=== PATIENT | female | born 1935 | race Caucasian/White ===

== ENCOUNTER 2021-01-17 14:00 | Emergency (ER) | payer OTHER ==
[~2021-01-17] VITALS: Ht 172.7 cm; Wt 74.8 kg
[2021-01-17 15:28] LABS: URINE BLOOD TRACE (Negative); URINE CLARITY CLEAR; URINE COLOR YELLOW; URINE GLUCOSE-RANDOM* NEGATIVE (Negative); URINE KETONES 1+ (Negative); URINE LEUKOCYTES-REFLEX NEGATIVE (Negative); URINE NITRITE-REFLEX NEGATIVE (Negative); URINE PROTEIN (DIPSTICK) TRACE (Negative); URINE SPECIFIC GRAVITY >= 1.030 (1.005-1.035)
[2021-01-17 15:30] LABS: ICTOTEST (BILI CONFIRMATORY) Negative (Negative); URINE BILIRUBIN NEGATIVE (Negative)
[2021-01-17 16:12] LABS: ABSOLUTE NEUTROPHILS 1.8 thou/uL (1.4-8.2); BASOPHILS 0.8 % (0.0-2.0); EOSINOPHILS 5.7 % (0.0-3.0); HEMATOCRIT 38.4 % (37.0-47.0); HEMOGLOBIN 12.9 gm/dL (12.0-15.0); LYMPHOCYTES 28.1 % (24.0-44.0); MCH 28.6 pg (26.0-34.0); MCHC 33.6 g/dL (28.0-37.0); MCV 85.1 fL (80.0-100.0); MONOCYTES 18.1 % (1.0-8.0); PLATELET COUNT 174 thou/uL (150-400); POLYS 47.3 % (36.0-66.0); RBC 4.51 mil/uL (4.20-5.00); RDW 15.7 % (10.5-14.5); WBC 3.7 thou/uL (4.0-11.0)
[2021-01-17 16:21] LABS: CALCIUM 8.7 mg/dL (8.5-10.1); CREATININE 0.9 mg/dL (0.6-1.0); POTASSIUM 3.6 mmol/L (3.5-5.1)
[2021-01-17 16:27] LABS: ALBUMIN 3.2 g/dL (3.4-5.0); TOTAL BILIRUBIN 0.4 mg/dL (0.2-1.0); TOTAL PROTEIN 6.9 g/dL (6.4-8.2)
--- NOTE | 2021-01-17 16:53 | EKG ---
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: : 1935 Requested By: Viktor Downs Order Number: [id number] MD: Arpit Manning Measurements Intervals [place] Rate: 66 P: MS: 216 QRS: -37 QRSD: 109 T: 10 QT: 443 QTc: 465 Interpretive Statements Atrial-paced complexes First-degree AV block Left ventricular hypertrophy Nonspecific ST segment abnormalities No previous ECG available for comparison Electronically Signed On 01-17-2021 16:53:52 CDT by Arpit Manning [email or web address] <ELECTRONICALLY SIGNED> By: Arpit Manning MD 01/17/21 1653 1450 1450 Arpit Manning MD /EPI
[2021-01-17 17:20] VITALS: BP 95/55
== END 2021-01-17 17:21 ==
LOC: ER 14:00
PROVIDERS: Emergency Medicine
DX: R44.2 Other hallucinations (principal); F41.9 Anxiety disorder, unspecified; F32.9 Major depressive disorder, single episode, unspecified; G40.909 Epilepsy, unspecified, not intractable, without status epilepticus; I10 Essential (primary) hypertension; Z90.12 Acquired absence of left breast and nipple; Z88.0 Allergy status to penicillin; Z20.822 Contact with and (suspected) exposure to COVID-19

== ENCOUNTER 2021-01-17 16:01 | Inpatient (IN) | payer OTHER ==
[~2021-01-17] VITALS: Ht 172.7 cm; Wt 73.3 kg
[2021-01-17 17:35] VITALS: BP 104/61
--- NOTE | 2021-01-17 19:26 | NUR ---
Admitted from [facility] for refusing meds and increased agitation and anxiety. Pacemaker placed on 01/07 at [facility]. Pt with hx of A fib s/p pacer, HTN, HLD, breast CA, epilepsy. Also has moist cough X several days, CXR neg in ER. Pt. with hx of anxiety. Breath sounds with good aeration with slight expiratory wheezes, albuterol tx given in ER. Reg HR auscultated. Color pale pink with brisk capillary refill and palpable peripheral pulses +2/+4. Minimal edema in lower extremities. Independent with voiding. Active bowel sounds over soft, rounded abdomen. BM per report and per pt on 01/16/21. Ambulates with walker with unsteady gait. Erythema under breasts bilaterally, cleaned and dried. Pt. signed consents but was off by a day so had son who is DPOA also give phone consent. Privacy code of [id number] given to son.
[2021-01-18 00:37] VITALS: BP 104/61
--- NOTE | 2021-01-18 01:30 | NUR ---
Pt is resting in bed, pt is alert/oriented x 3, pt denies SI/HI/AH/VH. Pt is concerned about her cough, she has a moist deep cough but is not coughing anything up. Lungs clear, Took medication with water whole without issues. Will continue to monitor throughout shift.
[2021-01-18 05:51] LABS: CHOLESTEROL 229 mg/dL (<200); HDL CHOLESTEROL 36 mg/dL (>40); LDL CHOLESTEROL 169 mg/dL (<100); TC:HDL 6.4 Ratio (Not establshd); TRIGLYCERIDE 120 mg/dL (<150); VLDL 24 mg/dL (<40)
[2021-01-18 05:52] LABS: SERUM ASSESSMENT N
[2021-01-18 06:02] LABS: CALCIUM 8.1 mg/dL (8.5-10.1); CREATININE 0.7 mg/dL (0.6-1.0); POTASSIUM 3.4 mmol/L (3.5-5.1)
[2021-01-18 08:31] VITALS: BP 104/63
--- NOTE | 2021-01-18 11:15 | NUR ---
Alert and orientated X4 this AM. Denies SI/HI. Wants to go back to [facility]. Ambulating without difficulty with walker with steady gait. Breath sounds with slight expiratory wheeze, improved since last night. Good aeration.Reg HR auscultated. Color pink with brisk capillary refill and palpable peripheral pulses. No edema noted, knee high JACQUELIN hose placed. Pacemaker site per L chest without s/o infection. Yellow urine per toilet. Active bowel sounds over rounded abdomen. Erythema under breasts, cleaned and nystatin applied.
[2021-01-18 19:36] VITALS: BP 129/54
[2021-01-18 19:37] VITALS: BP 129/54
--- NOTE | 2021-01-18 23:53 | NUR ---
Assumed care on 01/18/21 @ 1900, Cooperated with assessment, HRRR, Lungs noted to have wheezing on expiration on right side, left side noted to be CTA. 96% SpO2. In bed at shift change, awakens to voice. ABD N x 4Q over a round abdomen. Takes meds whole with water. Uses a walker to ambulate. High fall risk, wearing yellow socks and yellow Tshirt. A&Ox3-4 Returned to sleep after taking meds. Will continue to monitor for safety and comfort as per unit protocol. Bed alarm set, bed in low position.
[2021-01-19 08:33] VITALS: BP 115/95
--- NOTE | 2021-01-19 11:54 | NUR ---
PATIENT CARE ASSUMED AT 0700 - IN BED WHEN ARRIVING ON UNIT. LATER WALKED OUT ON UNIT INDEPENDENTLY UTILIZING WALKER. NOTED BEHAVIOR CHANGED SOON APPROACHED BY STAFF. UNABLE TO AMBULATE AND VERY FLACID - ASSISTED TO LIZETH CHAIR. PATIENT RELUCTANT TO HELP HERSELF WITH CERTAIN STAFF MEMBERS. NEEDS ENCOURAGEMENT TO EAT MEALS AND TAKE HER MEDICATIONS. HAS UNPRODUCTIVE COUGH - WHEEZING EVIDENT - APPETITE GOOD - FEEDS SELF WITH ENCOURAGEMENT. COMPLIANT WITH MEDICATIONS -
[2021-01-19 19:31] VITALS: BP 94/45
[2021-01-19 19:36] VITALS: BP 94/45
--- NOTE | 2021-01-20 02:30 | NUR ---
Assumed care on [facility] on 01/19/21 @ 1900, seated in larry chair in day room. Has developed weakness while ambulating with walker and has a arrieta score of 90. HRRR, has a wet cough, breath sounds clear after cough. Wheezing noted to right side on expiration, noted to be improved from yesterday. Impulsive and gets out of bed to go to toilet without waiting for assistance. Bed alarm set and bed in low position. Tylenol 650mg provided @ 0200 for right knee pain of 6/10. Upon follow up is noted to be sleeping.
[2021-01-20 09:02] VITALS: BP 104/70
[2021-01-20 09:24] VITALS: BP 104/70
--- NOTE | 2021-01-20 09:55 | NUR ---
New admit to H. Noted with nutrition risk assessment on admit reporting recent weight loss and decreased appetite. Pt is of advanced age with dx dementia with behavioral distrubance. Recently with pace maker placed and moved to facility. PMH HTN, epilepsy, HLD, breast CA. Labs noted K 3.4, Chol 229, HDL 36, LDL 169, Alb 3.2, vit D pending. On Vit D supplementation. Documentation shows good appetite and intakes improve with staff encouragement at meals. Intakes avg 65% last 5 meals. Will give supplement BID for reports of recent weight loss. Current weight appropriate, BMI 24. Low nutrition risk with interventions initiated.
--- NOTE | 2021-01-20 10:17 | NUR ---
1015 RESUMMED CARE FROM OVERNIGHT SHIFT THIS AM, PATIENT ALERT TO SELF AND PLACE. PATIENT SITTING IN DAY ROOM QUIET PATIENT ATE BREAKFAST TOOK MEDICATION WITHOUT INCIDENCE. PATIENT DENIES SI/HI/AH/VH AT PRESENT PATIENTS ABDOMEN SOFT BOWEL SOUNDS PRESENT. PATIENTS LUNGS CLEAR PATIENT CALM COOPERATIVE PATIENT HAS NOT DISPLAYED ANY BEHAVIORS. PATIENT WORKED WITH PT AND OT PATIENT HAD SOME SHORTNESS OF BREATH. I WILL ASKED THE DR FOR RESPIRATORY TREATMENT PATIENTS HAS A COUGH ALSO WHICH SHE STATES SHE HAS HAD FOR 3 WEEKS. WILL CONTINUE TO MONITOR PATIENT FOR SAFETY AND BEHAVIORS.
--- NOTE | 2021-01-20 10:41 | NUR ---
ORDERS RECEIVED, CHART REVIEWED, IN HISTORY/PHYSICAL DR. PARRA STATES WILL NOT ORDER O.T BASED ON SLUMS RESULTS. O.T. WAS ORDERED. DISCUSSED WITH DR. PARRA AND O.T WAS ORDERED BY MISTAKE. VERBALLY CANCELED O.T ORDER. WILL SIGN OFF AT THIS TIME, PLEASE RECONSULT IF NEEDED.
[2021-01-20 19:56] VITALS: BP 102/56
[2021-01-20 20:00] VITALS: BP 102/56
[2021-01-20 22:06] LABS: SYPHILIS AB Non Reactive (Non Reactive)
--- NOTE | 2021-01-21 01:55 | NUR ---
PATIENT CARE WAS RESUMED AT 1900. SHE IS ALERT AND ORIENTED. ABLE TO VERBALISE NEEDS. LUNGS ARE CLEAR BS ACTIVE X4 QUAD.SHE IS CONTINENT OF BOWEL AND BLADDER. SHE DENIED PAINS/AVH/SI/HI. DUE MEDS WERE GIVEN AND SHE TOOK HER MEDS WHOLE. CREAME APPLIED UNDER HER BREAST. BED IS LOW, LOCKED , ALARMED. BS ACTIVE X 4 .Q 12MINUTES CHECK IS ONGOING CONT CARE
--- NOTE | 2021-01-21 08:42 | H ---
[facility] [place] [address] HISTORY AND PHYSICAL Name: SERENE SAVAGE Room #: 521A-A ADM IN M.R.#: [id number] Admission: 01/17/21 Attend Phys: Terence Dolan DO Discharge: Date of : 35 Report #: [id number] THIS REPORT FOR: cc: Rita Kaur MD, Angela Michelle MD Kerstein,Terence Gastelum DO ~ DATE OF SERVICE: 01/18/2021 INPATIENT PSYCHIATRIC EVALUATION ATTENDING PSYCHIATRIST: Terence Dolan DO HIGH DENSITY PRESS LABORER: Terence Reyes MD REASON FOR ADMISSION: Sent out from a nursing facility in [place], [place] of [facility] for concerns of anxiety, increased dementia, inappropriate behavior on bed, fighting when they are trying to work with her, increased complaints of being sick, daily refusing meds, hitting staff. Interestingly, the patient had a pacemaker implanted recently on 01/07/2021. CHIEF COMPLAINT: Unspecified. HISTORY OF PRESENT ILLNESS: An 85-year-old female sent out from [facility] for geriatric psychiatry evaluation. Her DPOA is her son, Jasvir Savage. Her DPOA has not been active. ALLERGIES: CLAVULANIC ACID AND AMOXICILLIN. Before I go over my interview with the patient, wanted to note that I spoke to the son about the role of a healthcare power of immigration attorney. He understands his mother is incapacitated. The DPOA is now enacted. The patient is unable to make healthcare or general financial decisions. justification. The patient was admitted to [facility] approximately a week prior to the psychiatric admission. She also has a daughter, Nilsa and a daughter, Lisa Cruz who are involved. Her medical history includes diagnosis of paroxysmal atrial fibrillation, unspecified pain, ocular manifestations; psychiatric abnormalities of anxiety disorder, unspecified; major depressive disorder, single episode. Continued medical unspecified abnormalities of gait, essential hypertension, epilepsy, hyperlipidemia, history of malignant neoplasm of the breast which was successfully treated with surgery twice, generalized muscle weakness, constipation, bradycardia, orthostatic hypotension. [facility] [address] [place] [address] HISTORY AND PHYSICAL Name: SERENE SAVAGE Room #: 521A-A ADM IN .R.#: [id number] Admission: 01/17/21 Attend Phys: Terence Dolan DO Discharge: Date of : 35 Report #: [id number] MEDICATIONS: As best I can tell are midodrine 5 mg daily, vitamin D 3000 units oral p.o. p.r.n., Ativan 1 mg q.6 hours p.r.n., Eliquis 5 mg daily; Toprol-XL 25 mg daily, hold if systolic blood pressure less than 110; phenytoin sodium extended 400 mg daily, atorvastatin 20 mg at bedtime, Seroquel 25 mg at bedtime. There are some limited records from [facility] it looks like she was down at [facility] for pacemaker implantation. Records note she had been implanted with Medtronic pacemaker. There are some behavioral notes. On 01/16, the patient was noted states "I can't breathe, I do not know what is wrong with me." . She complained that staff was of no help. She apparently slaps hands, arms. The psychiatrist, Dr. Rodriguez sent her out. Gabriel, her son, told me the patient was living on her own prior to the cardiac pacemaker done. He has noticed some progressive decline. The patient had admission in 02/2020 for arm fracture about due to fall. She was sent to halfway in many occasions quarantine. EDUCATIONAL HISTORY: High school graduate, had five children, worked for [employer] in [place]. ADDITIONAL MEDICAL HISTORY: Breast cancer in 2014. I performed [facility] Mental status examination. The patient scored 12/30. Deficits specifically 0/3 on working memory questions, she said $50 a piece, 1 for 3 verbal fluency, the animal naming. She got 3 for 5 on delayed recall. She could only repeat 3 digits in reverse on reverse digit span. She got 2/4. She put to correct our markers, but the incorrect time, 2/2 visual spatial identifying the shapes and 0 through 8 on the cued memory. She replied [place] what the state she lived in. She went back to work again when children have grown, did not know what work Jackeline did. LABORATORY DATA: So far hematology: H and H 12.9 and 38.4; white count 3.7 which is slightly low; platelet count 174. Sodium 141, potassium 3.4, chloride 104, bicarbonate 26, anion gap 11, BUN 12, creatinine 0.7, estimated GFR 80, glucose 116, calcium 8.1. Total bilirubin 0.4, AST 37, ALT 19, alkaline phosphatase 74. Total protein 6.9, albumin 3.2. Triglycerides 120, total cholesterol 229, LDL 169, HDL low at 36. Urinalysis had trace protein, 1+ ketones, trace blood. No urine culture was triggered. COVID-19 Moses test was negative. IMAGING: Chest x-ray was done, showed no acute cardiopulmonary findings. The patient does have a cough. [facility] [address] [place] [address] HISTORY AND PHYSICAL Name: SERENE SAVAGE Room #: 521A-A ADM IN ..#: [id number] Admission: 01/17/21 Attend Phys: Terence Dolan, DO Discharge: Date of : 35 Report #: [id number] MEDICATIONS: Currently in the hospital, Seroquel which is scheduled 25 at bedtime, admitted with 25 mg t.i.d. earlier today, she got one time potassium today. Nystatin was ordered twice a day for rash under her breast. She is on sertraline 50 mg oral daily. Dilantin 400 mg daily metoprolol succinate 25 mg oral daily, vitamin D 2000 International Units oral daily, Eliquis 5 mg oral daily, atorvastatin 20 mg oral at bedtime, Seroquel 25 q.6 p.r.n. for anxiety or agitation. lorazepam otherwise, house PRNs. She has got a Tylenol around noon today. It is unclear if the patient has had a proper dementia workup done, do that this admission as well. PHYSICAL EXAMINATION: GENERAL: Off balance, assisted gait. She uses a walker. MENTAL STATUS EXAMINATION: This is a well-developed, ill-appearing, fairly tall female, appearing stated age. Attention impaired. Concentration impaired. Speech slightly slow, normal volume. Thought process: Linear and goal directed. Thought content: Focused on the present. Denied suicidal or homicidal ideations, auditory or visual type hallucinations. Mood was good. laughing at times congruent, euthymic. Memory is definitely impaired given SLUMS results. Insight and judgment impaired. Fund of knowledge below average. FORMULATION: An 85-year-old female sent out from [facility] for behavioral disturbances/dementia. 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 PLAN: The patient is admitted voluntarily to the geriatric psychiatry unit via DPOA this morning. Go ahead and do B12, vitamin D, syphilis antibody, head CT. The patient already has a PT need, so I am not going to order OT, I will order PT if that has not been ordered given her gait difficulties and balance issues. Time spent on this case is greater than 60 minutes, greater than 50% of the time was spent in review of records, coordination of care. STRENGTHS: She is insured, has placement, supportive family, DPOA. WEAKNESSES: Advanced age, multiple comorbidities, neurodegenerative disorder. [address] [address] HISTORY AND PHYSICAL Name: SERENE SAVAGE Room #: 521A-A ADM IN ..#: [id number] Admission: 01/17/21 Attend Phys: Terence Dolan DO Discharge: Date of : 35 Report #: [id number] Also, I did talk about starting her on memantine, so we will begin titration. I am going to avoid Aricept given her recent pacemaker placement and moderately advanced Alzheimer's dementia. <ELECTRONICALLY SIGNED> By: Terence Dolan DO 01/21/21 0842 1436 1816 Terence Dolan, /nt
[2021-01-21 09:27] VITALS: BP 153/64
--- NOTE | 2021-01-21 11:00 | NUR ---
COMPLIENT WITH TAKING MEDICATION THIS AM-DRAMATIC EXPANSIVE AFFECT-EASILY FRUSTRATED-DESCRIBES MOOD "PRETTY BAD"BUT WHEN ASKED TO ELOBORATE IS EITHER UNABLE OR UNWILLING TO SPECIFY IF FEELING DEPRESSED/ANXIOUS ETC-FOCUSED ON COUGH/SOMATIC ISSUES. DID HAVE ONE BRIEF EPISODE OF COUGHING DURING AM RT GROUP-LOOSE NON-PRODUCTIVE COUGH. LUNG SOUNDS DIMINISHED IN BASES AND RESPIRATIONS ARE NOTED TO BE EVEN/REGULAR. O2 SAT RECHECKED AND IS 96 PERCENT AT 100-ON RA. GAIT IS UNSTEADY-REMAINS [place] RISK-USING ROLLER WALKER TO AMBULATE AND IS NOTED TO LOOSE BALANCE AT TIMES-WHEN ASKED TO ALLOW STAFF TO WALK WITH HER WAS SLIGHTLY AGITATED STATING "EVERYONE ELSE LETS ME WALK ON MY OWN-IM FINE"
--- NOTE | 2021-01-21 16:07 | NUR ---
INCREASED ANXIETY AND RESTLESSNESS AFTER LUNCH-ESPECIALLY DURING SCHEDULED GROUP TIME-GETS UP FROM TABLE WHERE SHE WAS SITING AND BEGINS TO MOAN LOUDLY AND CLUTCH STOMACH-STATING STOMACH HURTS AND HAS TO GO TO BATHROOM-GAIT VERY UNSTEADY-ONCE IN BATHROOM NOTED TO BE INCREASINGLY ,MORE ANXIOUS-ROCKING BACK AND FORTH,WRINGING HANDS CRYING STATING "I CAN'T GO ITS RIGHT THERE-HELP HELP I'M GOING TO . THIS RN CHECKED RECTAL VAULT FOR STOOL AND NO STOOL NOTED IN RECTAL VAULT. BS ACTIVE X4. ABDOMEN SOFT-IS NOTED TO DOCUMENTED FOR BM APPROX 3 DAYS AGO-MD NOTIFIED AND FLEETS ENEMA GIVEN WITH MEDIUM SIZE SOFT FORMED STOOL APPROX 5 MINUTES LATER IN BS COMMODE. CONTINUES TO FOCUS ON BOWELS STATING BM "WASN'T ENOUGH" APPEARS ONFUSED STATING SHE DIDN'T KNOW WHAT AN ENEMA WAS AND STATING SHE DIDN'T NEED IT BECAUSE SHE WASN'T CONSTIPATED.TAKING RAPID SHALLOW BREATHS AND IS REFUSES TO FOLLOW STAFF INSTRUCTIONS RE DEEP BREATHING -MD NOTIFIED OF ANXIETY STATES HE PREFERS TO NOT ADMINISTER SEROQUEL ORDERED PRN FOR ANXIETY D/T ORTHOSTATIC BP CHANGES YESTERDAY
[2021-01-21 20:13] VITALS: BP 96/45
[2021-01-21 23:27] VITALS: BP 103/54
--- NOTE | 2021-01-22 01:45 | NUR ---
PATINET CARE WAS RESUMED AT 1900. SHE WAS IN THE DAY AREA. ALERT AND ORIENTED TO SELF AND PLACE. SHE IS ABLE TO VERBALIZE NEEDS. LUNGS ARE CLEAR BS ACTIVE X 4 QUADS. SHE IS CONTINENT OF BOWEL AND BLADDER. SHE DENIES SI/AVH/HI. SHE TOOK HER MEDS WHOLE. ABD IS SOFT NONE TENDER. SHE IS ON FALL PROTOCOL. YELLOW SOCK AND TOP ON. SHE ON Q 12MINIUTES CHECK. NO BEHAVIOR NOTED AT THIS TIME. CONTINUE CARE
[2021-01-22 08:54] VITALS: BP 104/77
--- NOTE | 2021-01-22 12:09 | NUR ---
PATIENT WAS IN BED AWAKE WHEN CARE ASSUMED, SHE REQUESTED TO USE THE COMODE THIS REQUIREMENTS ANALYST WENT TO ROOM TO INTRODUCE MYSELF HER NURSE. PATIENT VOIDED LARGE AMOUNT OF STRAW URINE. PATIENT AMBULATED TO DAYROOM WITH ASSIST OF WALKER FOR BREAKFAST, FED SELF, CONSUMED 100%, AND DRANK ENSURE. PATIENT IS ALERT, AND ORINETED X 1-2, SHE IS FORGETFUL, AND CONFUSED AT TIMES. PATIENT DENIES SUICIDAL/HOMICIDAL IDEATION, "I JUST WANT TO GO HOME NOW. THE [facility] IS NICE I WANT TO GO BACK THERE". PATIENT TOOK ALL MEDICATION WHOLE ONE AT A TIME, WITHOUT DIFFICUTY. PATIENT STATES SHE IS TIRED THIS MORNING, WANTED TO GO BACK TO BED AFTER BREAKFAST, THIS REQUIREMENTS ANALYST ASSISTED TO [facility] FOR CLOSE OBSERVATION, AND SHE FELL ASLEEP. STILL SLEEPING WHEN PT CAME AROUND TO WORK WITH HER. SHE IS NOW AWAKE, STATES SHE IS NOT HUNGRY, CHOOSING NOT TO LUNCH, SHE IS DRINKING ENSURE, AND EATING FRUITS. NO SIGN OF ACUTE DISTRESS NOTED AT THIS TIME, WILL MONITOR FOR SAFETY.
--- NOTE | 2021-01-22 15:21 | NUR ---
TAMY faxed updates to the facility. TAMY was able to speak with the MICA Chen at [facility], concerning the Pt. April stated Pt has issues with throwing herself on the floor. Also Pt "possums" out at time, saying she cant breathe. At other times Pt's behavior is "normal". April had no questions or concerns at this time. TAMY will continue to follow
[2021-01-22 19:29] VITALS: BP 157/57
--- NOTE | 2021-01-22 20:40 | NUR ---
PATIENT CARE ASSUMED AT 1900, PATIENT CURRENTLY LYING IN BED ALERT AND EASILY ROUSED. PATIENT IS A&OX4, VERY PLEASANT. STATES HER MOOD IS "OK I GUESS" AND DENIES ANY PAIN, DEPRESSION, SI/HI/AVH. SHE SAT RIGHT UP TO TAKE HER MEDS WHOLE, WITHOUT DIFFICULTY. WHEN ADMINISTERING NYSTATIN CREAM, SHE SAYS THE AREA UNDER HER BREASTS IS MUCH BETTER AND DOESN'T THINK SHE REALLY NEEDS THE NYSTATIN ANYMORE. THE AREA DOES LOOK CLEAR AND HAS NO REDNESS OR IRRITATION VISABLE. PATIENT AMBULATES WITH A WALKER WITH STANDBY ASSIST. REPORTS HAVING HAD A BOWEL MOVEMENT EARLIER TODAY.
[2021-01-23 01:20] VITALS: BP 96/56
[2021-01-23 01:51] VITALS: BP 103/35
[2021-01-23 08:47] VITALS: BP 165/81
[2021-01-23 12:10] VITALS: BP 95/60
--- NOTE | 2021-01-23 12:32 | NUR ---
Very tired this AM. Repeatedly wanting to go back to bed. Orientated to person, place and knows month and year but not day. Ambulates with walker. Breath sounds clear. Moist cough at times. Reg HR auscultated. Color pink with brisk capillary refill and palpable peripheral pulses. No edema noted. Knee high JACQUELIN hose placed. Independent with voiding. Active bowel sounds over soft, rounded abdomen. Currently eating lunch without s/o distress.
--- NOTE | 2021-01-23 16:50 | EKG ---
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: PHYLLIS : 1935 Requested By: Terence Dolan Order Number: [id number] MD: [place] Measurements Intervals [place] Rate: 68 P: 78 [place]: 228 QRS: -35 QRSD: 104 T: 17 QT: 425 QTc: 453 Interpretive Statements Sinus arrhythmia Prolonged [place] interval Left axis deviation Borderline T wave abnormalities Compared to ECG 01/17/2021 14:50:02 First degree AV block now present Left-axis deviation now present T-wave abnormality now present Atrial-paced complex(es) or rhythm no longer present Left ventricular hypertrophy no longer present Electronically Signed On 01-23-2021 16:50:45 CDT by [place] [email or web address] <ELECTRONICALLY SIGNED> By: [place] MD, FAC 01/23/21 1650 0138 [place] MD, FAC /EPI
[2021-01-23 19:38] VITALS: BP 156/66
--- NOTE | 2021-01-23 23:59 | NUR ---
PATIENT CARE RESUMED AT 1900. PATIENT TOOK MEDS WHOLE WITHOUT DIFFICULTY, APPEARS ANXIOUS AND DISTRAUGHT AT TIMES, BUT UNABLE TO STATE WHAT IS BOTHERING HER. STATES "I DON'T KNOW". PATIENT IS A&OX3. DENIES PAIN/SI/HI/AVH. WILL MONITOR.
[2021-01-24 08:57] VITALS: BP 118/97
--- NOTE | 2021-01-24 12:03 | NUR ---
Alert, less orientated than previous days. States that year is 2019, correctly states month. States that she wants to go home and goal is to be discharged. Irritable with exaggerated behavior. States stomach hurts. States she is having trouble passing stool, does not want enema. Upon further questioning she states stool is hard and stated she thinks her hemmoroids are hanging out. No visible hemmoroids outside anus. Ate part of breakfast and then spit out approximately 5 cc of clear, thin phlegm. Breath sounds clear. Occassional moist cough. Reg HR auscultated. Color pink with brisk capillary refill and palpable peripheral pulses. Continent of yellow urine per toilet. Active bowel sounds over soft, rounded abdomen. Ambulates with walker with unsteady gait, requires supervision. Discussed request for stool softner and hemmoroids with Dr. Lim and ALESSANDRA Blair. Will place orders.
--- NOTE | 2021-01-24 12:34 | NUR ---
RT Progress Note- Kala's participation in recreation therapy groups has been variable throughout her admission. Kala has been very somatically preoccupied, hindering her ability to focus and fully engage in groups. She often appears anxious and is unaccepting of suggestions for deep breathing or other calming techniques. DOOR LINER will continue to encourage patient's present participation as well as offering of calming techniques.
[2021-01-24 12:46] LABS: HEMATOCRIT 36.1 % (37.0-47.0); HEMOGLOBIN 12.1 gm/dL (12.0-15.0); MCH 28.7 pg (26.0-34.0); MCHC 33.7 g/dL (28.0-37.0); MCV 85.1 fL (80.0-100.0); RBC 4.24 mil/uL (4.20-5.00); RDW 15.6 % (10.5-14.5)
[2021-01-24 12:59] LABS: CALCIUM 9.1 mg/dL (8.5-10.1); CREATININE 0.9 mg/dL (0.6-1.0); POTASSIUM 4.5 mmol/L (3.5-5.1)
[2021-01-24 15:30] VITALS: BP 100/54
[2021-01-24 20:51] VITALS: BP 168/61
--- NOTE | 2021-01-25 04:21 | NUR ---
PT REMAINED IN BED THIS SHIFT. DID REFUSED SUPPOSITORY FOR HEMMORHOIDS. ALSO REFUSED MIRALAX; STATING THAT SHE'S HAD SEVERAL BM'S TODAY. SLEPT MOST OF THE SHIFT. BP SLIGHTLY ELEVATED. SLOW PROGRESS TOWARDS DC GOALS, WILL CONTINUE TO MONITOR.
[2021-01-25 09:19] VITALS: BP 99/56
--- NOTE | 2021-01-25 11:13 | NUR ---
Alert and orientated to person and place. Denies SI/HI. Exaggerated facial expressions and mannerisms during assessment. Stated she had a little abdominal pain but then stated that placing JACQUELIN hose hurt. Also stated face being washed hurt. Went back to sleep with no s/o distress after assessment. Dr. Jorgensen here evaluating pt. Breath sounds clear. Reg HR auscultated. Color pink with brisk capillary refill and palpable peripheral pulses. No edema in feet, JACQUELIN hose placed. Active bowel sounds over soft, rounded abdomen. Independent with voiding. Ambulates with steady gait with walker.
[2021-01-25 20:23] VITALS: BP 151/80
--- NOTE | 2021-01-25 23:12 | NUR ---
PATIENT CARE RESUMED AT 1900. TOOK MEDS WHOLE WITHOUT DIFFICULTY. DENIES PAIN/SI/HI/AVH. PATIENT MAKES EXASPERATED AND EXAGERATED FACIAL EXPRESSIONS AT TIMES AND IS UNABLE TO STATE ANY PROBLEM OR ISSUE. IS OTHERWISE A&OX3, COMPLIANT WITH DIRECTIVES, CALM. WILL MONITOR.
[2021-01-26 05:38] LABS: ABSOLUTE NEUTROPHILS 3.3 thou/uL (1.4-8.2); BASOPHILS 0.6 % (0.0-2.0); EOSINOPHILS 1.7 % (0.0-3.0); HEMATOCRIT 36.6 % (37.0-47.0); HEMOGLOBIN 12.5 gm/dL (12.0-15.0); LYMPHOCYTES 25.1 % (24.0-44.0); MCH 28.9 pg (26.0-34.0); MCHC 34.2 g/dL (28.0-37.0); MCV 84.6 fL (80.0-100.0); MONOCYTES 14.8 % (1.0-8.0); PLATELET COUNT 293 thou/uL (150-400); POLYS 57.8 % (36.0-66.0); RBC 4.33 mil/uL (4.20-5.00); RDW 15.5 % (10.5-14.5); WBC 5.6 thou/uL (4.0-11.0)
[2021-01-26 06:00] LABS: CALCIUM 8.7 mg/dL (8.5-10.1); MAGNESIUM 1.9 mg/dL (1.8-2.4); PHOSPHORUS 4.2 mg/dL (2.5-4.9)
[2021-01-26 08:00] VITALS: BP 119/62
--- NOTE | 2021-01-26 14:21 | NUR ---
PATIENT CARE ASSUMED AT 0700 - IN BED AT TIME OF ARRIVAL ON UNIT. PATIENT ASSISTED TO DINING ELLISON. AMBULATED WITH WALKER AND BECAME LIMP AND TO WEAK TO CONTINUE. STAFF ASSISTED TO TABLE. PATIENT COMPLAINED OF STOMACH UPSET AND NEEDED ENCOURAGEMENT TO EAT - STATED FELT NAUSEA - PATIENT COMPLIANT WITH MEDICATIONS - PATIENT'S BEHAVIOR FLUCTUATES AT TIMES HELPLESS AND ANXIOUS AND OTHER TIMES SCURRYING ACROSS THE DINING ELLISON WITH HER WALKER. PATIENT LAID DOWN AFTER LUNCH AND HAS BEEN SLEEPING COMFORTABLY- WILL CONTINUE TO MONITOR PATIENT FOR SAFETY AND ANY CONCERNS AN ADDRESS ACCORDINGLY.
[2021-01-26 20:09] VITALS: BP 125/69
--- NOTE | 2021-01-26 22:32 | NUR ---
PATIENT CARE RESUMED AT 1900, PATIENT LYING IN BED AT THAT TIME, WITHDRAWN TO ROOM IN EVENING IS TYPICAL FOR HER. TOOK MEDS WHOLE WITHOUT DIFFICULTY. DENIES PAIN/SI/HI/AVH. MAKES EXAGERATED FACIAL EXPRESSIONS. LESS SOMATIC COMPLAINTS THIS EVENING. STANDBY ASSIST TO BATHROOM, NO DIFFICULTY.
[2021-01-27 08:37] VITALS: BP 106/57
[2021-01-27 10:06] VITALS: BP 106/57
--- NOTE | 2021-01-27 10:55 | NUR ---
Nutrition followup: pt continues on [facility] unit with unspecified dementia/behaviors. Severe vitamin D deficiency-on supplement. Weight up 4# since admitting weight taken. Follow trends as prior report of weight loss. BM 01/26. C/O some nausea. Hospitalist adjusting meds. PO intake highly variable but averaging 35% of past 12 meals-poor, however drinks 100% of most supplements BID. Continue present interventions and keep at low risk.
--- NOTE | 2021-01-27 11:06 | NUR ---
1106 ASSUMED CARE FROM OVERNIGHT SHIFT NURSE. PT ALERT AND ORIENTED. PT SITTING IN DAY WOOM. PT ATE BREAKFAST AND TOOK MEDICATIONS WITHOUT INCIDENT. PT DENIES SI/HI/AH/VH AT PRESENT. PT COOPERATIVE. PT ABDOMENT SOFT AND BOWEL SOUND PRESENT. PT HAS NOT DISPLAYED [place] BEHAVIORS. PT REFUSED RESPIRATORY TREATMENTS THIS AM. WILL CONT TO MONITOR PT FOR SAFETY AND BEHAVIORS.
--- NOTE | 2021-01-27 17:25 | NUR ---
TAMY contacted [facility] concerning discharging the Pt back to skilled. they are able to accept the media manager and requested PT noted. TAMY faxed PT notes. TAMY will continue to follow
[2021-01-27 19:43] VITALS: BP 93/61
[2021-01-27 20:40] VITALS: BP 93/61
--- NOTE | 2021-01-28 00:34 | NUR ---
PATINET CARE WAS RESUMED AT 1900. SHE IS ALERT AND ORINETED. LUNGS ARE CLEAR. ABLE TO VERBALIZE SOME NEEDS. SHE DENIES PAINS/SI/AVH/HI. SHE AMBULATES WITH WALKER. SHE IS IN BED AT THIS TIME. SHE TOOK HER MEDS WHOLE . NO CONCERN NOTED AT THIS TIME. CONTINUE CARE AND MONITOR.
[2021-01-28 09:18] VITALS: BP 119/67
[2021-01-28 10:25] VITALS: BP 119/67
--- NOTE | 2021-01-28 13:13 | NUR ---
1300 RESUMMED CARE FROM OVERNIGHT SHIFT THIS AM, PATIENT IN ROOM LYING QUIETLY IN BED. PATIENT HAS TO BE ENCOURAGED TO GET UP FOR MEALS AND GROUPS. PATIENT ATE BREAKFAST TOOK MEDICATION WITHOUT INCIDENCE. PATIENTS ABDOMEN SOFT BOWEL SOUNDS PRESENT PATIENT REFUSED SUPPOSITORY THIS AM. PATIENT DENIES SI/HI/AH/VH AT PRESENT. PATIENT IS SOMATIC AT TIMES AND WHEN ASKED TO GET UP FOR GROUPS AND MEALS. SHE STATES I AM GOING TO BE SICK AND SHE STARTS ACTING LIKE SHE IS GOING TO VOMIT. I HAD TO REMIND PATIENT THAT SHE IS ON ROOM LOCKOUT, THEN SHE PULLS HERSELF TOGETHER TO COMPLY. PATIENT AFFECT FLAT AND SHE HAS NOT ENTHUSIASTIC ABOUT ANYTHING. WILL CONTINUE TO MONITOR PATIENT FOR SAFETY AMD BEHAVIORS.
[2021-01-28 19:49] VITALS: BP 134/76
[2021-01-28 20:25] VITALS: BP 134/76
--- NOTE | 2021-01-29 02:34 | NUR ---
PATINET CARE WAS RESUMED AT 1900. SHE IN BED, ALERT AND ORIENTED. SHE AMBULATES WITH WALKER . ABLE TO VERBALIZE NEEDS. SHE DENIES PAINS/SI/AVH/HI. LUNGS ARE CLEAR BS ACTIVE X 4 . ABD IS SOFT AND NON TENDER.BED IS LOW, LOCKED AND ALARMED. SHE TOOK HER MEDS WHLOE. Q 12MINUTES CHECKS ACTIVE. CONT CARE
[2021-01-29 08:26] VITALS: BP 137/70
--- NOTE | 2021-01-29 16:53 | NUR ---
PATIENT HAS BEEN UP, AND OUT ON THE UNIT, AMBULATES WITH ASSIST OF ROLLER WALKER, GAIT IS SLOW, SLIGHTLY UNSTEADY GAIT. PATIENT TOOK ALL MEDICATION WHOLE WITHOUT DIFFICULTY, SHE IS EATING MEALS, AND DRINKING FLUID WELL. PATIENT DENIES SUICIDAL/HOMICIDAL IDEATION. SHE DENIES AUDITORY/VISUAL HALLUCINATION, RATES DEPRESSION 5/10, DENIES ANXIETY/PAIN. AFFECT IS FLAT, MOOD IS DEPRESSED. NO SIGN OF ACUTE DISTRESS NOTED AT THIS TIME, WILL MONITOR FOR SAFETY.
[2021-01-29 19:26] VITALS: BP 145/69
[2021-01-29 20:35] VITALS: BP 145/69
--- NOTE | 2021-01-30 00:52 | NUR ---
PATINET CARE WAS RESUMED AT 1900. SHE IS ALERT AND OREINTED AND ABLE TO VERABLIZE NEEDS. LUNGS AR CLEAR BS ACTIVE X4 QUADS. SHE DENIES SI/AVH/HI. SHE TOOK HER MEDS WHOLE AND Q 12MINUES CHECK IN PLACE. BED IS LOW , LOCKED ALARMED AND SHE HAS YELLOW SOCKS AND TOP ON. NO CONCERN NOTED AT THIS TIME. CONTINUE CARE.
[2021-01-30 09:53] VITALS: BP 152/76
--- NOTE | 2021-01-30 11:54 | NUR ---
RT Progress Note- Kala has been present in each group this review period, following being placed on a room lockout. Kala has not shown resistance to this and is accepting of attendance in groups. She continues to appear anxious, but is participative in groups. [employer] will continue to encourage Kala's progress and continued participation.
--- NOTE | 2021-01-30 14:30 | NUR ---
1430 RESUMMED CARE FROM OVERNIGHT SHIFT THIS AM, PATIENT IN ROOM LYING IN BED QUIETLY. PATIENT IS ALERT ORIENTERED TO TO SELF ONLY, PATIENT DENIES SI.HI/AH/VH AT PRESENT. PATIENTS ABDOMEN SOFT BOWEL SOUNDS. PRESENT LUNGS CLEAR. PATIENT ATE BREAKFAST AND TOOK HER MEDICATION WITHOUT INCIDENCE. PATIENT IS ON ROOM LOCK OUT FOR MEALS AND GROUP AND YOU HAVE TO STAY ON THE PATIENT TO PARTICIPATE. PATIENT LIKES TO GO IN ROOM TO GO TO BED PATIENT HAS NOT DISPLAYED ANY BEHAVIORS, WILL CONTINUE TO MONITOR PATIENT FOR SAFETY AND BEHAVIORS.
--- NOTE | 2021-01-30 17:38 | NUR ---
TAMY faxed updates to [facility]
[2021-01-30 19:30] VITALS: BP 163/62
[2021-01-30 20:20] VITALS: BP 163/62
--- NOTE | 2021-01-31 | NUR ---
PATIENT CARE WAS RESUMED AT 1900. SHE IS ALERT AND ORIENTED, CALM AND WAS SITTING IN BED IN THE ROOM. SHE DENIES ANY DISCOMFORT/SI/AVH/HI. SHE IS ABLE TO VERBALIZE HER CONCERNS. SHE TOOK HER MEDS WHOLE AND HER LUNGS ARE CLEAR. BS ACTIVE X 4 QUADS. SHE IS CONTINENT OF BOWEL AND BLADDER. AMBULATES WITH WALKER WITH A STAND-BY ASSIST. BED IS LOW AND LOCKED.NO SKIN ISSUE OR EDEMA NOTED. Q12 MINUTES CHECKS IS ONGOING. CONTINUE CARE AND MONITOR.
[2021-01-31 10:08] VITALS: BP 103/63
[2021-01-31 11:10] VITALS: BP 103/63
--- NOTE | 2021-01-31 12:32 | NUR ---
1230 RESUMMED CARE FROM OVERNIGHT SHIFT THIS AM, PATIENT IN ROOM DOING HYGIENE FOR BREAKFAST. PATIENT ATE BREAKFAST TOOK MEDICATION WITHOUT INCIDENCE. PATIENT ALERT ORIENTED TO SELF AND PLACE PATIENT HAS TO BE REMINDED TO BE IN GROUPS. SHE DOES HAVE A ROOM LOCKOUT ORDER FOR MEALS AND GROUPS PATIENT DENIES SI/HI/AHVH AT PRESENT. PATIENT LIKES TO GO TO ROOM AND SLEEP SO WE NEED TO GET HER TO BE ACTIVE, WILL CONTINUE TO MONITOR PATIENT FOR SAFETY AND BEHAVIORS.
--- NOTE | 2021-01-31 18:12 | NUR ---
TAMY was able to speak with Rosalina at [facility] concerning discharge. They are able to accept the Pt on 02/03/2021 @10am. Pt will be transported via [employer] md[employer] transportation confirmation #[id number]. TAMY was able to speak with Pt's Gabriel GODOY, and inform about this discharge
[2021-01-31 19:06] VITALS: BP 135/42
[2021-01-31 21:30] VITALS: BP 135/42
--- NOTE | 2021-01-31 23:04 | NUR ---
01/31/21 - pt is alert/oriented x 3, pleasant affect, resting in bed, no complaints, talking with nurse, she voiced she had a BM today. Lung sounds clear, HRR, bowel sounds + 4 Q, Denies SI/HI/AH/VH. Will continue to monitor
[2021-02-01 08:00] VITALS: BP 96/73
[2021-02-01 09:11] VITALS: BP 96/73
--- NOTE | 2021-02-01 09:38 | NUR ---
0975 assumed care of pt from overnight nurse. pt lying in bed during assessment. pt currently in day room sitting and watching TV. Pt denies pain at this time. pt ate breakfast and took meds w no problems. pt alert times 2. pt ambulates slowly w walker. pt lungs clear w non productive cough. pt abdomen soft and bowel signs present. will cont to assess pt for needs and safety.
--- NOTE | 2021-02-01 13:04 | NUR ---
SW faxed updates for pt. SW team will continue to follow pt during her stay on this unit.
[2021-02-01 19:19] VITALS: BP 97/50
--- NOTE | 2021-02-02 04:10 | NUR ---
02-01-21 CARE TRANSFERRED 0 OBSERVED PT WALKING IN HALLWAY WITH WALKER, STEADY GAIT. LATER ASSISTED PT TO BATHROOM, MEDIUM BROWN FORMED BM. PT AAOX3, VSS, RR EVEN AND NONLABORED ON RA. PT DENIES PAIN AND SI/HI. PT REMAINS CALM AND INTERACTIVE DURING NURSING ASSESSMENT. DURING MEDICATION ADMIN PT REFUSED SUPPOSITORY AND NYSTATIN, PT HAD NO DIFFICULTIES TAKING MEDICATION WHOLE WITH WATER. LATER PT BED WAS ADJUSTED FOR COMFORT, LOWEST POSITION, LOCKED AND ALARM ON. PT WILL CONTINUE TO BE MONITOR PER [facility].
[2021-02-02 09:33] VITALS: BP 80/44
--- NOTE | 2021-02-02 11:41 | NUR ---
ASSUMED PATIENT CARE AT 0700, SHE WAS SLEEPING IN BED LATER CAME OUT FOR BREAKFAST, ALERT AND OREINTED X4, CALM AND COOPERATIVE DURING ASSESSMENT, LUNGS CLEAR, BS ACTIVE, PATIENT AMBULATE WITH WALKER WITH UNSTEADY GAIT, ATTENDS GROUP, SHE TOOK HER MEDICATION WHOLE, AND DENIES SI/HI.
[2021-02-02 19:30] VITALS: BP 127/43
[2021-02-02 19:37] VITALS: BP 127/43
--- NOTE | 2021-02-02 19:57 | NUR ---
Assumed care on 02/02/21 @ 1900, Cooperated with assesment, HRRR, Lungs CTA, ABD N reports bm today before dinner. A&Ox 4, Pain in abdomen secondary to constipation. Reports likes exercise group, but becomes short of breath with the exertion. Ambulates with walker. Will continue tomonitor as per unit protocol.
[2021-02-03] MEDS ORDERED: ALBUTEROL2.5 MG/31 INH (08:22)
[2021-02-03] MEDS ORDERED: ELIQUIS5 MG PO (08:23)
[2021-02-03] MEDS ORDERED: LIPITOR 20 MG T20 M1 PO (08:23)
[2021-02-03] MEDS ORDERED: ZOLOFT 50 MG TA50 MG PO (08:26)
[2021-02-03] MEDS ORDERED: PHENYTOIN SODI100 M3 PO (08:26)
[2021-02-03] MEDS ORDERED: NAMENDA 5 MG TAB5 M1 PO (08:27)
[2021-02-03] MEDS ORDERED: COLACE 100 MG100 MG PO (08:28)
[2021-02-03] MEDS ORDERED: FLONASE 0.05%50 MCG NASAL (08:28)
[2021-02-03] MEDS ORDERED: VITAMIN D3125 MC1 PO (08:29)
[2021-02-03] MEDS ORDERED: HEMORRHOIDAL S RECTAL (08:29)
[2021-02-03 08:48] VITALS: BP 147/59
[2021-02-03 08:54] VITALS: BP 147/59
--- NOTE | 2021-02-03 10:02 | NUR ---
1002 assumed care from overnight nurse. pt alert times 2. pt sitting in dining room during assessment. pt's lungs clear. pt abdomen soft, bowel sounds present. pt denies pain at present. pt w no behavior issues. pt to discharge at 1000 today. pt ate breakfast and took medications w no issues. will cont to monitor pt for behavior and safety needs.
--- NOTE | 2021-02-03 10:39 | NUR ---
1025 pt transferred to wheelchair for discharge. pt transferred safely. pt discharged with all belongings. pt packet given to transportation staff. pt alert and in stable condition.
--- NOTE | 2021-02-04 21:49 | D ---
[facility] [place] [address] DISCHARGE SUMMARY Name: SERENE LEVI Room #: 52-A [facility] IN M.R.#: [id number] Admission: 01/17/21 Attend Phys: Terence Dolan DO Discharge: 02/03/21 Date of : 35 Report #: [id number] THIS REPORT FOR: cc: Rita Kaur MD, Angela Michelle MD Kerstein,Terence Gastelum DO ~ DATE OF SERVICE: 02/03/2021 INPATIENT PSYCHIATRIC DISCHARGE SUMMARY ATTENDING PSYCHIATRIST: Terence Dolan DO UNIT ASSISTANT AT TIME OF DISCHARGE: Radha Coelho MD. 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 The patient is discharging back to [facility] skilled. She had previously been in a skilled stay there prior to admission. Her discharge activity level is going to be as tolerated, use of walker. Caution with change of position as does report some dizziness, but orthostasis. I do not believe this has been demonstrated. Ensure Enlive twice daily for supplementation. Regular diet. DISCHARGE MEDICATIONS: Albuterol nebulizer 2.5 mg inhalation every 12 hours scheduled, Eliquis 5 mg oral twice daily for history of blood clot, atorvastatin 10 mg oral at bedtime for hyperlipidemia, phenytoin sodium extended release 400 mg oral daily for seizure prevention, sertraline 50 mg oral daily for history of depression, memantine 10 mg oral twice daily for cognitive enhancer, Flonase 2 sprays each nostril oral daily for allergic rhinitis, docusate 100 mg oral daily for bowel motility and 7 more days of hemorrhoidal suppository includes phenylephrine and cocoa butter 3 times a day or until bleeding stop, cholecalciferol vitamin D3 5000 international units oral daily for supplementation. LABORATORY DATA: Significant laboratories this admission, most recent CBC on 01/26/2021, H and H 12.5 and 36.6, white count 5.6, platelet count 293. Sodium 137, potassium 4.0, chloride 104, bicarbonate 26, anion gap 7, BUN 22, creatinine 1.0, estimated GFR 53, glucose 135, calcium 8.7, phosphorus 4.2, magnesium 1.9. Troponin less than 0.06 on 01/23/2021, I believe that was just for chest pain check out. Dilantin level 15.3 on 01/19/2021. Syphilis serology was nonreactive. REASON FOR ADMISSION: Back on 01/17/2021, 85-year-old female sent out from [facility] with concerns of anxiety and flailing inappropriate behavior in bed, fighting when they are trying to give cares work [facility] [address] [place] [address] DISCHARGE SUMMARY Name: SERENE LEVI Room #: 521A-A [facility] IN M.R.#: [id number] Admission: 01/17/21 Attend Phys: Terence Dolan DO Discharge: 02/03/21 Date of : 35 Report #: [id number] with her, increased complaints of illness without factual basis, refusing medications and hitting staff. HOSPITAL COURSE: The patient was admitted to the geriatric psychiatry unit. Initially, we finished a dementia workup. There were not any material reversible causes. The patient was taken care of by myself of the first couple days and then Dr. Lim took over around 01/22/2021. When I had her, I discontinued the Seroquel due to orthostasis and actually give her a holiday from psychotropic medication. When Dr. Lim resumed care around 01/23/2021, it looks like she holidayed things a bit further and actually as I look through here, she was just maintained on sertraline, psychotropics largely not started. We did initiate Namenda therapy for her this admission. At the day of discharge, the patient was in good mood. Denied SI, HI. PHYSICAL EXAMINATION: VITAL SIGNS: At this admission, temperature 35.9, pulse 75, respirations 17, BP 147/59, O2 sat 100%. MUSCULOSKELETAL: Assisted gait with walker. Normal station. MENTAL STATUS EXAMINATION: This is a well-developed, fairly nourished female appearing stated age. Attention intact. Concentration limited. Speech normal rate, volume, and tone. Thought process: Linear and goal directed. Thought content focused on discharge at present. Denied suicidal or homicidal ideation, auditory, visual, or tactile hallucinations. Denied hopelessness, helplessness. Memory not formally tested. Insight limited. Judgment limited. Fund of knowledge below average. Prognosis for this patient is guarded given age of 85 and having neurodegenerative disorder. <ELECTRONICALLY SIGNED> By: Terence Dolan DO 02/04/21 [id number] Terence Dolan DO /nt
== END 2021-02-03 10:25 | DRG 57 ==
LOC: SBH
PROVIDERS: Internal Medicine; Psychiatry & Neurology Psychiatry; ADMIT Psychiatry & Neurology Psychiatry; ATTEND Psychiatry & Neurology Psychiatry
DX: G30.9 Alzheimer's disease, unspecified (principal); F02.81 Dementia in other diseases classified elsewhere, unspecified severity, with behavioral disturbance; I48.20 Chronic atrial fibrillation, unspecified; E78.5 Hyperlipidemia, unspecified; F32.9 Major depressive disorder, single episode, unspecified; E87.6 Hypokalemia; F41.9 Anxiety disorder, unspecified; G40.909 Epilepsy, unspecified, not intractable, without status epilepticus; B36.9 Superficial mycosis, unspecified; I95.1 Orthostatic hypotension; E55.9 Vitamin D deficiency, unspecified; Z66 Do not resuscitate; K59.00 Constipation, unspecified; Z20.822 Contact with and (suspected) exposure to COVID-19; Z88.1 Allergy status to other antibiotic agents; Z85.3 Personal history of malignant neoplasm of breast; Z88.8 Allergy status to other drugs, medicaments and biological substances; Z95.5 Presence of coronary angioplasty implant and graft
CPT/HCPCS: 10880